=== PATIENT | male | born 1990 | race Caucasian/White ===

== ENCOUNTER 2016-12-11 05:55 | Observation (INO) | payer MEDICAID ==
[~2016-12-11] VITALS: Ht 193 cm; Wt 81.6 kg
[~2016-12-11 05:55] MED LIST: AMBI5TAB PO
[2016-12-11] MEDS ORDERED: GENTAMICIN IV SCH (06:30)
[2016-12-11] MEDS ORDERED: SODIUM CHLORIDE 0.9% IV SCH (06:30)
[2016-12-11] MEDS ORDERED: INSULIN HUMAN REGULAR 1,000 UNITS/10 ML VIAL SQ PRN (06:45)
[2016-12-11] MEDS ORDERED: SODIUM CHLORID 0.9% 500 ML IV PRN (06:45)
[2016-12-11] MEDS ORDERED: CIPROFLOXACIN 400 MG PREMIX 200 ML IV SCH (06:45)
[2016-12-11] MEDS ORDERED: CHLORHEXIDINE GLUCONATE 2 % 1 PACK (2 CLOTHS) TOPICAL PRN (06:45)
[2016-12-11] MEDS ORDERED: POVIDONE IODINE 5% (ANTISEPSIS KIT) 4 APPLICATIONS EACH NARE PRN (06:45)
[2016-12-11] MEDS ORDERED: METOPROLOL TARTRATE 25 MG TAB PO PRN (06:45)
[2016-12-11] MEDS ORDERED: LACTATED RINGER'S 1000 ML IV PRN (06:45)
[2016-12-11 06:49] VITALS: BP 121/69; PULSE 58; RESP 20; TEMP 97.8; O2SAT 99
[2016-12-11 06:57] LABS: AUTOMATED NEUTROPHIL # 2.7 TH/MM3 (1.8-7.7); BASOPHIL # 0.1 TH/MM3 (0-0.2); BASOPHIL % 1.1 % (0.0-2.0); EOSINOPHIL # 0.1 TH/MM3 (0-0.4); EOSINOPHIL % 2.8 % (0.0-4.0); HEMATOCRIT 43.4 % (39.0-51.0); HEMO FLAGS DIFF FINAL; LYMPH % 34.5 % (9.0-44.0); LYMPHOCYTE # 1.7 TH/MM3 (1.0-4.8); MEAN CELL VOLUME 82.4 FL (80.0-100.0); MEAN CORPUSCULAR HGB CONC 32.7 % (32.0-36.0); MONO % 7.2 % (0.0-8.0); NEUT % 54.4 % (16.0-70.0); PLATELET COUNT 161 TH/MM3 (150-450); RED BLOOD COUNT 5.27 MIL/MM3 (4.50-5.90); RED CELL DISTRIBUTION WIDTH 12.9 % (11.6-17.2)
[2016-12-11 07:22] LABS: ALT (GPT) 44 U/L (12-78); ANION GAP 8 MEQ/L (5-15); AST (GOT) 29 U/L (15-37); BLOOD UREA NITROGEN 11 MG/DL (7-18); CHLORIDE 105 MEQ/L (98-107); GLOMERULAR FILTRATION RATE 141 ML/MIN (>89); POTASSIUM 3.8 MEQ/L (3.5-5.1); SODIUM (NA) 141 MEQ/L (136-145)
[2016-12-11 07:24] LABS: ALKALINE PHOSPHATASE 90 U/L (45-117); TOTAL BILIRUBIN ADULT 0.5 MG/DL (0.2-1.0)
[2016-12-11] MEDS ORDERED: MIDAZOLAM HCL 2 MG/2 ML VIAL ONE (08:52)
[2016-12-11] MEDS ORDERED: DO NOT ADM ANY ANTICOAGULANT DRUGS PRN (09:00)
[2016-12-11] MEDS ORDERED: *morphine SULFATE 8 MG/ML PERIprocedure ONLY ONE ×2 (09:01→09:48)
[2016-12-11] MEDS ORDERED: PROPOFOL 200 MG/20 ML AMP IV ONE (12:00)
[2016-12-11] MEDS: MEPERIDINE HCL 50 MG/ML VIAL IM PRN ×3 (15:20→21:58)
[2016-12-11 16:00] VITALS: BP 148/70; PULSE 96; RESP 17; TEMP 97.1; O2SAT 97
[2016-12-11 17:55] VITALS: O2SAT 97
[2016-12-11 20:00] VITALS: BP 105/52; PULSE 89; RESP 18; TEMP 100.7; O2SAT 97
[2016-12-11] MEDS ORDERED: ONDANSETRON HCL 4 MG/2 ML VIAL IV PUSH PRN (20:00)
[2016-12-12] VITALS (7 sets, daily range): BP systolic 109–118; BP diastolic 51–56; PULSE 80–88; RESP 17–20; TEMP 97.3–101.4; O2SAT 96–100
[2016-12-12] MEDS: MEPERIDINE HCL 50 MG/ML VIAL IM PRN ×4 (06:08→19:39)
[2016-12-12] MEDS ORDERED: ACETAMINOPHEN 325 MG TAB PO PRN (17:15)
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
== END 2016-12-13 | disposition home or self-care (01) ==
LOC: HSDC 05:55 → N07A 13:19
DX: N21.0 Calculus in bladder (principal); G82.20 Paraplegia, unspecified
CPT/HCPCS: 00870; 51050; 80053; 85025; G0378; J0744; J1580; J2175; J2250; J2270; J3010; J7120; L1830

== ENCOUNTER 2017-11-23 07:14 | Emergency (ER) | payer MEDICAID ==
[~2017-11-23] VITALS: Ht 193 cm; Wt 73.5 kg
[2017-11-23 07:20] VITALS: BP 127/75; PULSE 137; RESP 16; TEMP 98.4; O2SAT 98
[2017-11-23] MEDS ORDERED: SODIUM CHLOR 0.9% 1000 ML INJ 1,000 ML IV SCH (07:50)
--- NOTE | 2017-11-23 07:55 | PD ---
HPI Chief Complaint: GI Complaint Time Seen by Provider: 07:52 Travel History International Travel<30 days: No Contact w/Intl Traveler<30days: No Traveled to known affect area: No History of Present Illness HPI 27-year-old male patient with history of paraplegia, frequent UTIs, kidney stone , presents to the ER today because he has had 1 day history of nausea, vomiting , constant diarrhea, feeling bloated, and tired in general. He states that he thinks he may be dehydrated. He states that he also felt this way the last time he had a UTI as well. He has a condom catheter. He denies any recent fevers or any other issues. His girlfriend states that they had eaten a seafood salad last night although she is not sick. Modifying Factors: None Associated Signs & Symptoms: nausea, vomiting, diarrhea, abdominal bloating Risk Factors: Frequent UTIs, paraplegia PFSH Past Medical History Arthritis: No Asthma: No Autoimmune Disease: No Anxiety: No Depression: No Heart Rhythm Problems: No Cancer: No Cardiovascular Problems: No High Cholesterol: No Chemotherapy: No Chest Pain: No Congestive Heart Failure: No COPD: No Cerebrovascular Accident: No Diabetes: No Diminished Hearing: No Endocrine: No GERD: No Genitourinary: Yes (SELF CATH, FREQUENT UTI, BLADDER STONE) Headaches: No Hepatitis: No Hiatal Hernia: No Hypertension: No Immune Disorder: No Implanted Vascular Access Dvce: Yes Kidney Stones: No Musculoskeletal: Yes (spasms in legs) Neurologic: Yes (T8 PARAPLEGIC) Psychiatric: No Reproductive: No Respiratory: No Immunizations Current: Yes Migraines: No Myocardial Infarction: No Radiation Therapy: No Renal Failure: No Seizures: No Sickle Cell Disease: No Sleep Apnea: No Thyroid Disease: No Ulcer: No PNEUMOCCOCAL Vaccine (Year): 2 Past Surgical History Abdominal Surgery: No AICD: No Appendectomy: No Arteriovenous Shunt: No Body Medical Devices: FILTER IMPLANTED TO PREVENT BLOODCLOTS IF ANY FROM LEGS, THORACIC HARDWARE Cardiac Surgery: No Cholecystectomy: No Ear Surgery: No Endocrine Surgery: No Eye Surgery: No Genitourinary Surgery: No Insulin Pump: No Joint Replacement: No Oral Surgery: No Pacemaker: No Thoracic Surgery: Yes (THORACIC TEAR SURGERY BY DR NAIDU; 04/11) Other Surgery: Yes (HERNIA) Social History Alcohol Use: No Tobacco Use: No Substance Use: No Allergies-Medications (Allergen,Severity, Reaction): Coded Allergies: No Known Allergies (Verified Adverse Reaction, Unknown, 11/23/17) Reported Meds & Prescriptions Reported Meds & Active Scripts Active No Active Prescriptions or Reported Medications Review of Systems Except as stated in HPI: all other systems reviewed are Neg Physical Exam Narrative GENERAL: Paraplegic young white male patient currently in mild distress. Awake and oriented 3. SKIN: Focused skin assessment warm/dry. HEAD: Atraumatic. Normocephalic. EYES: Pupils equal and round. No scleral icterus. No injection or drainage. ENT: No nasal bleeding or discharge. Mucous membranes pink and moist. NECK: Trachea midline. No JVD. CARDIOVASCULAR: Regular rate and rhythm. No murmur appreciated. RESPIRATORY: No accessory muscle use. Clear to auscultation. Breath sounds equal bilaterally. GASTROINTESTINAL: Abdomen soft, non-tender, nondistended. Hepatic and splenic margins not palpable. MUSCULOSKELETAL: No obvious deformities. No clubbing. No cyanosis. No edema. NEUROLOGICAL: Awake and alert. No obvious cranial nerve deficits. Motor grossly within normal limits. Normal speech. PSYCHIATRIC: Appropriate mood and affect; insight and judgment normal. Data Data Last Documented VS Vital Signs Date Time Temp Pulse Resp B/P (MAP) Pulse Ox O2 Delivery O2 Flow Rate FiO2 11/23/17 09:53 110 16 105/64 (78) 98 Room Air 11/23/17 07:20 98.4 Orders Orders Complete Blood Count With Diff (11/23/17 07:50) Comprehensive Metabolic Panel (11/23/17 07:50) Lipase (11/23/17 07:50) Iv Access Insert/Monitor (11/23/17 07:50) Ecg Monitoring (11/23/17 07:50) Oximetry (11/23/17 07:50) Ondansetron Inj (Zofran Inj) (11/23/17 08:00) Sodium Chlor 0.9% 1000 Ml Inj (Ns 1000 M (11/23/17 07:50) Sodium Chloride 0.9% Flush (Ns Flush) (11/23/17 08:00) Urinalysis - C+S If Indicated (11/23/17 07:52) Urine Culture (11/23/17 09:15) Ondansetron Inj (Zofran Inj) (11/23/17 10:00) Ciprofloxacin 400 Mg Premix (Cipro 400 M (11/23/17 10:00) Ed Discharge Order (11/23/17 09:55) Labs Laboratory Tests Test 11/23/17 08:30 11/23/17 09:15 White Blood Count 3.9 TH/MM3 Red Blood Count 6.17 MIL/MM3 Hemoglobin 17.4 GM/DL Hematocrit 51.4 % Mean Corpuscular Volume 83.3 FL Mean Corpuscular Hemoglobin 28.2 PG Mean Corpuscular Hemoglobin Concent 33.9 % Red Cell Distribution Width 12.5 % Platelet Count 177 TH/MM3 Mean Platelet Volume 7.4 FL Neutrophils (%) (Auto) 84.4 % Lymphocytes (%) (Auto) 4.5 % Monocytes (%) (Auto) 9.5 % Eosinophils (%) (Auto) 0.8 % Basophils (%) (Auto) 0.8 % Neutrophils # (Auto) 3.3 TH/MM3 Lymphocytes # (Auto) 0.2 TH/MM3 Monocytes # (Auto) 0.4 TH/MM3 Eosinophils # (Auto) 0.0 TH/MM3 Basophils # (Auto) 0.0 TH/MM3 CBC Comment DIFF FINAL Differential Comment Blood Urea Nitrogen 19 MG/DL Creatinine 1.30 MG/DL Random Glucose 139 MG/DL Total Protein 9.2 GM/DL Albumin 5.0 GM/DL Calcium Level 9.4 MG/DL Alkaline Phosphatase 106 U/L Aspartate Amino Transf (AST/SGOT) 52 U/L Alanine Aminotransferase (ALT/SGPT) 56 U/L Total Bilirubin 0.8 MG/DL Sodium Level 138 MEQ/L Potassium Level 4.9 MEQ/L Chloride Level 101 MEQ/L Carbon Dioxide Level 25.3 MEQ/L Anion Gap 12 MEQ/L Estimat Glomerular Filtration Rate 65 ML/MIN Lipase 69 U/L Urine Collection Type VOIDED Urine Color OTHER Urine Turbidity CLOUDY Urine pH 5.5 Urine Specific [place] GREATER/EQUAL 1.030 Urine Protein TRACE mg/dL Urine Glucose (UA) NEG mg/dL Urine Ketones TRACE mg/dL Urine Occult Blood TRACE Urine Nitrite NEG Urine Bilirubin NEG Urine Urobilinogen 0.2 MG/DL Urine Leukocyte Esterase LARGE Urine RBC 10-14 /hpf Urine WBC 100-200 /hpf Urine WBC Clumps MANY Urine Squamous Epithelial Cells 0-5 /hpf Urine Renal Epithelial Cells 0-5 /hpf Urine Bacteria MANY /hpf Microscopic Urinalysis Comment CULTURE INDICATED Urine Collection Time 09:15 [facility] Medical Decision Making Medical Screen Exam Complete: Yes Emergency Medical Condition: Yes Medical Record Reviewed: Yes Interpretation(s) Laboratory Tests Test 11/23/17 08:30 11/23/17 09:15 White Blood Count 3.9 TH/MM3 (4.0-11.0) Red Blood Count 6.17 MIL/MM3 (4.50-5.90) Hemoglobin 17.4 GM/DL (13.0-17.0) Hematocrit 51.4 % (39.0-51.0) Neutrophils (%) (Auto) 84.4 % (16.0-70.0) Lymphocytes (%) (Auto) 4.5 % (9.0-44.0) Monocytes (%) (Auto) 9.5 % (0.0-8.0) Lymphocytes # (Auto) 0.2 TH/MM3 (1.0-4.8) Blood Urea Nitrogen 19 MG/DL (7-18) Random Glucose 139 MG/DL (74-106) Total Protein 9.2 GM/DL (6.4-8.2) Aspartate Amino Transf (AST/SGOT) 52 U/L (15-37) Estimat Glomerular Filtration Rate 65 ML/MIN (>89) Lipase 69 U/L (73-393) Urine Turbidity CLOUDY (CLEAR) Urine Ketones TRACE mg/dL (NEG) Urine Leukocyte Esterase LARGE (NEG) Urine RBC 10-14 /hpf (0-3) Urine WBC 100-200 /hpf (0-5) Urine WBC Clumps MANY (NONE) Urine Bacteria MANY /hpf (NONE) Differential Diagnosis Gastroenteritis versus food poisoning versus metabolic issues versus dehydration Narrative Course Lab work shows significant UTI. Urine cultures have been done. IV antibiotics were initiated in the ER and patient was given IV fluids and nausea medications in the ER. At this point, plan would be to release the patient would follow-up to primary care doctor. Return for any worsening in symptoms. The plan has been discussed with him and he states understanding. Diagnosis Primary Impression: UTI (urinary tract infection) Additional Impression: Mild dehydration Med/Other Pt SpecificInfo: Prescription(s) given Scripts Ciprofloxacin (Cipro) 500 Mg Tab 500 MG PO BID for Infection for 7 Days, #14 TAB 0 Refills Prov: Shalom Solis MD 11/23/17 Ondansetron Odt (Zofran Odt) 4 Mg Tab 4 MG SL Q6HR Y for Nausea/Vomiting, #7 TAB 0 Refills Prov: Shalom Solis MD 11/23/17 Disposition: 01 DISCHARGE HOME Condition: Stable Shalom Solis MD Nov 23, 2017 07:55
[2017-11-23] MEDS ORDERED: ONDANSETRON HCL 4 MG/2 ML VIAL IVP ONE (08:00)
[2017-11-23 08:40] LABS: AUTOMATED NEUTROPHIL # 3.3 TH/MM3 (1.8-7.7); BASOPHIL % 0.8 % (0.0-2.0); EOSINOPHIL % 0.8 % (0.0-4.0); HEMATOCRIT 51.4 % (39.0-51.0); HEMOGLOBIN 17.4 GM/DL (13.0-17.0); LYMPH % 4.5 % (9.0-44.0); LYMPHOCYTE # 0.2 TH/MM3 (1.0-4.8); MEAN CELL VOLUME 83.3 FL (80.0-100.0); MEAN CORPUSCULAR HEMOGLOBIN 28.2 PG (27.0-34.0); MEAN CORPUSCULAR HGB CONC 33.9 % (32.0-36.0); MEAN PLATELET VOLUME 7.4 FL (7.0-11.0); MONO % 9.5 % (0.0-8.0); MONOCYTE # 0.4 TH/MM3 (0-0.9); NEUT % 84.4 % (16.0-70.0); PLATELET COUNT 177 TH/MM3 (150-450); RED BLOOD COUNT 6.17 MIL/MM3 (4.50-5.90); RED CELL DISTRIBUTION WIDTH 12.5 % (11.6-17.2); WHITE BLOOD COUNT 3.9 TH/MM3 (4.0-11.0)
[2017-11-23] MEDS: SODIUM CHLORIDE 0.9% FLUSH 10 ML FLUSH IV FLUSH PRN ×2 (08:42→10:14)
[2017-11-23 08:49] LABS: CHLORIDE 101 MEQ/L (98-107); SODIUM (NA) 138 MEQ/L (136-145)
[2017-11-23 08:51] LABS: CALCIUM 9.4 MG/DL (8.5-10.1)
[2017-11-23 08:52] LABS: BICARBONATE 25.3 MEQ/L (21.0-32.0); BLOOD UREA NITROGEN 19 MG/DL (7-18); GLUCOSE,RANDOM 139 MG/DL (74-106)
[2017-11-23 08:55] LABS: ALT (GPT) 56 U/L (12-78); AST (GOT) 52 U/L (15-37); GLOMERULAR FILTRATION RATE 65 ML/MIN (>89)
[2017-11-23 08:57] LABS: TOTAL BILIRUBIN ADULT 0.8 MG/DL (0.2-1.0); TOTAL PROTEIN 9.2 GM/DL (6.4-8.2)
[2017-11-23 08:58] LABS: ALKALINE PHOSPHATASE 106 U/L (45-117)
[2017-11-23 09:03] VITALS: RESP 16; O2SAT 98
[2017-11-23 09:37] LABS: BILIRUBIN, URINE NEG (NEG); BLOOD, URINE TRACE (NEG); GLUCOSE,URINE NEG (NEG); KETONE, URINE TRACE mg/dL (NEG); NITRITE,URINE NEG (NEG); PH, URINE 5.5 (5.0-8.5); URINE COLOR OTHER (YELLW/STRAW); URINE LEUKOCYTE ESTERASE LARGE (NEG)
[2017-11-23 09:41] LABS: SQUAMOUS EPITHELIAL CELL URINE 0-5 /hpf (0-5); WBC, URINE 100-200 /hpf (0-5); WHITE BLOOD CELL CLUMPS MANY
[2017-11-23 09:42] LABS: BACTERIA, URINE MANY /hpf; RENAL EPITHELIAL CELLS 0-5 /hpf
[2017-11-23 09:53] VITALS: BP 105/64; PULSE 110; RESP 16; O2SAT 98
[2017-11-23] MEDS ORDERED: ZOFR4TAB3 SL (09:57)
[2017-11-23] MEDS ORDERED: CIPR-9 PO (09:57)
[2017-11-23] MEDS ORDERED: ONDANSETRON HCL 4 MG/2 ML VIAL IV PUSH ONE (10:00)
[2017-11-23] MEDS ORDERED: CIPROFLOXACIN 400 MG PREMIX 200 ML IV ONE (10:00)
[2017-11-23 11:30] VITALS: BP 109/72; PULSE 96; RESP 16; O2SAT 99
== END 2017-11-23 12:18 | disposition home or self-care (01) ==
LOC: PHED 07:14
DX: N39.0 Urinary tract infection, site not specified (principal); E86.0 Dehydration; R11.2 Nausea with vomiting, unspecified; R19.7 Diarrhea, unspecified; R14.0 Abdominal distension (gaseous); R53.83 Other fatigue; B96.5 Pseudomonas (aeruginosa) (mallei) (pseudomallei) as the cause of diseases classified elsewhere; B95.2 Enterococcus as the cause of diseases classified elsewhere; B96.89 Other specified bacterial agents as the cause of diseases classified elsewhere; G82.20 Paraplegia, unspecified; Z87.440 Personal history of urinary (tract) infections; Z87.39 Personal history of other diseases of the musculoskeletal system and connective tissue
CPT/HCPCS: 80053; 81001; 83690; 85025; 87077; 87086; 87186; 96361; 96365; 96375; 96376; 99284; J0744; J2405; J7030